=== PATIENT | male | born 1995 | race Hispanic/Latino ===

== ENCOUNTER 2018-05-29 05:48 | Emergency (ER) | payer SELFPAY ==
--- NOTE | 2018-05-29 06:33 | EDPHYS ---
Physician Documentation [facility] Name: Darrian Conklin Jr Age: 23 yrs Sex: Male : 1995 Arrival Date: 05/29/2018 Time: 05:49 Bed 16 Private MD: ED Physician Ezra Garcia HPI: 05/29 06:23 This 23 yrs old Male presents to ER via Ambulatory with complaints of cp Congestion. 06:24 The patient presents with nasal drainage, clear, nasal congestion. Onset: The cp symptoms/episode began/occurred 2 day(s) ago. Associated signs and symptoms: Pertinent negatives: cough, ear ache, fever, sore throat. Severity of symptoms: in the emergency department the symptoms are unchanged. Historical: - Allergies: 06:06 No Known Allergies; fc - Home Meds: 06:06 None [Active]; fc - PMHx: 06:06 None; fc - PSHx: 06:06 None; fc - Immunization history:: Last tetanus immunization: up to date. - Social history:: Smoking status: Patient uses tobacco products, smokes one-half pack cigarettes per day, Patient/guardian denies using alcohol, street drugs. - Ebola Screening: : Patient negative for fever greater than or equal to 101.5 degrees Fahrenheit, and additional compatible Ebola Virus Disease symptoms Patient denies exposure to infectious person Patient denies travel to an Ebola-affected area in the 21 days before illness onset. ROS: 06:26 Eyes: Negative for injury, pain, redness, and discharge. cp 06:26 Constitutional: Negative for body aches, chills, fever, poor PO intake. 06:26 ENT: Positive for rhinorrhea, nasal congestion, Negative for drainage from ear(s), ear pain, sinus pain, sore throat, difficulty swallowing, difficulty handling secretions. 06:26 Neck: Negative for pain with movement, pain at rest, stiffness, swollen nodes. 06:26 Cardiovascular: Negative for chest pain, palpitations. 06:26 Respiratory: Negative for cough, shortness of breath, wheezing. 06:26 Abdomen/GI: Negative for abdominal pain, nausea, vomiting, and diarrhea. 06:26 : Negative for urinary symptoms. 06:26 Skin: Negative for cellulitis, rash. 06:26 Neuro: Negative for altered mental status, headache, weakness. 06:26 All other systems are negative. Exam: 06:28 Head/Face: Normocephalic, atraumatic. cp 06:28 Constitutional: The patient appears in no acute distress, alert, awake, non-toxic, well developed, well nourished. 06:28 Eyes: Periorbital structures: appear normal, Conjunctiva: normal, no exudate, no injection, Lids and lashes: appear normal, bilaterally. 06:28 ENT: External ear(s): are unremarkable, Ear canal(s): are normal, clear, TM's: bulging, is not appreciated, bilaterally, erythema, that is mild, on the left, Nose: External nose: no obvious acute abnormality, Nasal mucosa: congestion, nasal drainage, that is minimal, Mouth: Lips: moist, Oral mucosa: pink and intact, moist, Posterior pharynx: is normal, airway is patent, no erythema, no exudate, Voice: is normal. 06:28 Neck: ROM/movement: is normal, is supple, without pain, no range of motions limitations, no meningismus, no nuchal rigidity, Lymph nodes: no appreciated lymphadenopathy. 06:28 Chest/axilla: Inspection: normal, Palpation: is normal, no crepitus, no tenderness. 06:28 Cardiovascular: Rate: normal, Rhythm: regular. 06:28 Respiratory: the patient does not display signs of respiratory distress, Respirations: normal, no use of accessory muscles, no retractions, no splinting, no tachypnea, labored breathing, is not present, Breath sounds: are clear throughout, no decreased breath sounds, no stridor, no wheezing. 06:28 Abdomen/GI: Exam negative for discomfort, distension, guarding, Inspection: obese 06:28 Skin: cellulitis, is not appreciated, no rash present. Vital Signs: 05:50 BP 121 / 81; Pulse 82; Resp 20; Temp 97.9(O); Pulse Ox 97% on R/A; Weight 142.88 kg fc (R); Height 5 ft. 8 in. (172.72 cm) (R); Pain 0/10; 06:53 BP 124 / 80; Pulse 80; Resp 16; Pulse Ox 100% on R/A; Pain 0/10; ao 05:50 Body Mass Index 47.90 (142.88 kg, 172.72 cm) MDM: 06:11 Patient medically screened. cp 06:25 Differential diagnosis: sinusitis, URI, allergic rhinitis. cp 06:31 Data reviewed: vital signs, nurses notes, and as a result, I will discharge patient. cp 06:31 Counseling: I had a detailed discussion with the patient and/or guardian regarding: the cp historical points, exam findings, and any diagnostic results supporting the discharge/admit diagnosis, to return to the emergency department if symptoms worsen or persist or if there are any questions or concerns that arise at home. Administered Medications: No medications were administered Disposition: 07:05 Co-signature as Attending Physician, Ezra Garcia MD I agree with the assessment and [facility] plan of care. Disposition: 05/29/18 06:32 Discharged to Home. Impression: Nasal congestion. - Condition is Stable. - Prescriptions for Flonase Allergy Relief 50 mcg/actuation Nasal spray,suspension - inhale 1 spray by INTRANASAL route once daily; 1 unit. Zyrtec- D 5-120 mg Oral Tablet Sustained Release 12 hr - take 1 tablet by ORAL route every 12 hours As needed; 20 tablet. - Medication Reconciliation Form, Thank You Letter, Antibiotic Education, Prescription Opioid Use, Work release form form. - Follow up: Private Physician; When: 2 - 3 days; Reason: Recheck today's complaints. - Problem is new. - Symptoms are unchanged. Signatures: Ezra Garcia MD MD cha Chretien, Felicia, RN RN Ezra Limon PA PA cp Ortiz, Alex, RN RN ao Corrections: (The following items were deleted from the chart) 06:25 06:23 The patient presents with nasal drainage, clear, cp cp 06:55 06:32 05/29/2018 06:32 Discharged to Home. Impression: Nasal congestion. Condition is ao Stable. Forms are Medication Reconciliation Form, Thank You Letter, Antibiotic Education, Prescription Opioid Use. Follow up: Private Physician; When: 2 - 3 days; Reason: Recheck today's complaints. Problem is new. Symptoms are unchanged. cp
--- NOTE | 2018-05-29 06:33 | ER ---
Nurse's Notes [facility] Name: Darrian Conklin Jr Age: 23 yrs Sex: Male : 1995 Arrival Date: 05/29/2018 Time: 05:49 Bed 16 Private MD: Diagnosis: Nasal congestion Presentation: 05/29 05:50 Presenting complaint: Patient states: that he has been having sinus congestion with fc clear nasal drainage x 2 days. Denies any fever or cough. Transition of care: patient was not received from another setting of care. Onset of symptoms was May 27, 2018. Risk Assessment: Do you want to hurt yourself or someone else? Patient reports no desire to harm self or others. Initial Sepsis Screen: Does the patient meet any 2 criteria? No. Patient's initial sepsis screen is negative. Does the patient have a suspected source of infection? No. Patient's initial sepsis screen is negative. Care prior to arrival: Medication(s) given: Zrytec yesterday am. 05:50 Method Of Arrival: Ambulatory 05:50 Acuity: KRYSTAL 5 Triage Assessment: 05:50 General: Appears comfortable, obese, Behavior is calm, cooperative, appropriate for age. Pain: Denies pain. EENT: Nares with drainage noted Reports nasal congestion nasal discharge that is watery. Neuro: Level of Consciousness is awake, alert, obeys commands, Oriented to person, place, time, situation. Cardiovascular: No deficits noted. Respiratory: Airway is patent Respiratory effort is even, unlabored, Respiratory pattern is regular, symmetrical, Breath sounds are clear bilaterally. Onset: The symptoms/episode began/occurred gradually, the patient has mild shortness of breath Denies cough, shortness of breath labored breathing. GI: No deficits noted. : No deficits noted. Derm: Skin is pink, warm \T\ dry. Musculoskeletal: Circulation, motion, and sensation intact. Capillary refill < 3 seconds, Range of motion: intact in all extremities. Historical: - Allergies: 06:06 No Known Allergies; fc - Home Meds: 06:06 None [Active]; fc - PMHx: 06:06 None; fc - PSHx: 06:06 None; fc - Immunization history:: Last tetanus immunization: up to date. - Social history:: Smoking status: Patient uses tobacco products, smokes one-half pack cigarettes per day, Patient/guardian denies using alcohol, street drugs. - Ebola Screening: : Patient negative for fever greater than or equal to 101.5 degrees Fahrenheit, and additional compatible Ebola Virus Disease symptoms Patient denies exposure to infectious person Patient denies travel to an Ebola-affected area in the 21 days before illness onset. Screenin:06 Abuse screen: Denies threats or abuse. Nutritional screening: No deficits noted. Tuberculosis screening: No symptoms or risk factors identified. Fall Risk None identified. Assessment: 06:05 General: Appears in no apparent distress. comfortable. Pain: Denies pain. Neuro: Level ao of Consciousness is awake, alert, obeys commands, Oriented to person, place, time, situation, Appropriate for age Moves all extremities. Full function Speech is normal, Facial symmetry appears normal. Cardiovascular: Capillary refill < 3 seconds Patient's skin is warm and dry. Respiratory: Airway is patent Trachea midline Respiratory effort is even, unlabored, Respiratory pattern is regular, symmetrical. Respiratory: Breath sounds are clear bilaterally. GI: Abdomen is obese. : No signs and/or symptoms were reported regarding the genitourinary system. EENT: No signs and/or symptoms were reported regarding the EENT system. Derm: Skin is intact, Skin is pink, warm \T\ dry. normal, Skin temperature is warm. Musculoskeletal: Circulation, motion, and sensation intact. Range of motion:. 06:53 Reassessment: DC instructions given to patient. patient agree with the POC and to ao follow up with PCP. Vital Signs: 05:50 BP 121 / 81; Pulse 82; Resp 20; Temp 97.9(O); Pulse Ox 97% on R/A; Weight 142.88 kg (R); Height 5 ft. 8 in. (172.72 cm) (R); Pain 0/10; 06:53 BP 124 / 80; Pulse 80; Resp 16; Pulse Ox 100% on R/A; Pain 0/10; ao 05:50 Body Mass Index 47.90 (142.88 kg, 172.72 cm) ED Course: 05:49 Patient arrived in ED. ds1 05:50 Arm band placed on Patient placed in an exam room, on a stretcher. 06:05 Triage completed. 06:06 Patient has correct armband on for positive identification. Bed in low position. Call light in reach. Pulse ox on. NIBP on. 06:06 No provider procedures requiring assistance completed. 06:11 Ezra Limon PA is PHCP. cp 06:11 Ezra Garcia MD is Attending Physician. cp 06:26 Say Negron, RN is Primary Nurse. ao 06:53 Patient did not have IV access during this emergency room visit. ao Administered Medications: No medications were administered Outcome: 06:32 Discharge ordered by . cp 06:53 Discharged to home ambulatory. ao 06:53 Condition: stable 06:53 Discharge instructions given to patient, Instructed on discharge instructions, follow up and referral plans. Demonstrated understanding of instructions, follow-up care, medications, Prescriptions given X 2. 06:55 Patient left the ED. ao Signatures: Frieda Mason, RN RN StanfordDashi ds1 Ezra Limon PA PA cp Say Negron, RN RN ao
== END 2018-05-29 06:55 | disposition home or self-care (01) ==
LOC: ER 05:48
DX: R09.81 Nasal congestion (principal); F17.210 Nicotine dependence, cigarettes, uncomplicated
CPT/HCPCS: 99283

== ENCOUNTER 2018-06-17 09:03 | Emergency (ER) | payer SELFPAY ==
--- NOTE | 2018-06-17 09:40 | ER ---
Nurse's Notes [facility] Name: Darrian Conklin Jr Age: 23 yrs Sex: Male : 1995 Arrival Date: 06/17/2018 Time: 09:05 Bed 14 Private MD: Diagnosis: Insect bite (nonvenomous) of left upper arm Presentation: 06/17 09:09 Presenting complaint: Patient states: insect bite to L upper arm, for about 24 hours. Transition of care: patient was not received from another setting of care. Onset of symptoms was June 16, 2018 at 09:00. Risk Assessment: Do you want to hurt yourself or someone else? Patient reports no desire to harm self or others. Initial Sepsis Screen: Does the patient meet any 2 criteria? No. Patient's initial sepsis screen is negative. Does the patient have a suspected source of infection? No. Patient's initial sepsis screen is negative. Care prior to arrival: None. 09:09 Method Of Arrival: Ambulatory 09:09 Acuity: KRYSTAL 5 ch Triage Assessment: 09:10 Bite description: bite sustained to left tricep by an unknown animal, animal information: vaccination(s) is not applicable. General: Appears in no apparent distress. comfortable, Behavior is calm, cooperative, appropriate for age. Pain: Complains of pain in left arm. Historical: - Allergies: 09:10 No Known Allergies; - Home Meds: 09:10 None [Active]; - PMHx: 09:10 None; - PSHx: 09:10 None; - Immunization history:: Adult Immunizations up to date, Last tetanus immunization: up to date Flu vaccine is not up to date. - Social history:: Smoking status: Patient/guardian denies using tobacco, Patient/guardian denies using alcohol, street drugs. - Ebola Screening: : Patient negative for fever greater than or equal to 101.5 degrees Fahrenheit, and additional compatible Ebola Virus Disease symptoms Patient denies exposure to infectious person Patient denies travel to an Ebola-affected area in the 21 days before illness onset No symptoms or risks identified at this time. Screenin:15 Abuse screen: Denies threats or abuse. Denies injuries from another. Nutritional cc3 screening: No deficits noted. Tuberculosis screening: No symptoms or risk factors identified. Fall Risk None identified. Assessment: 09:15 General: Appears in no apparent distress. comfortable, Behavior is calm, cooperative, cc3 appropriate for age. Pain: Complains of pain in left medial upper arm Pain currently is 6 out of 10 on a pain scale. Quality of pain is described as burning, aching. Neuro: Level of Consciousness is awake, alert, obeys commands, Oriented to person, place, time, situation, Appropriate for age. Cardiovascular: Denies chest pain, Capillary refill < 3 seconds is brisk in bilateral. Respiratory: Airway is patent Respiratory effort is even, unlabored, Respiratory pattern is regular, symmetrical. GI: Abdomen is flat, round non-distended. : No signs and/or symptoms were reported regarding the genitourinary system. EENT: No signs and/or symptoms were reported regarding the EENT system. Derm: Skin redness on the left medial upper arm from unknown insect bite. Skin is red, Skin temperature is hot. Musculoskeletal: No signs and/or symptoms reported regarding the musculoskeletal system. Vital Signs: 09:10 BP 132 / 86; Pulse 79; Resp 15; Temp 98.9; Pulse Ox 97% on R/A; Weight 133.81 kg; ch Height 5 ft. 9 in. (175.26 cm); Pain 3/10; 09:10 Body Mass Index 43.56 (133.81 kg, 175.26 cm) ED Course: 09:05 Patient arrived in ED. as 09:10 Triage completed. 09:10 Arm band placed on left wrist. Patient placed in an exam room, on a stretcher. 09:15 Placed in gown. Bed in low position. Call light in reach. Side rails up X 1. cc3 09:16 Ezra Limon PA is PHCP. cp 09:16 Zac Olivo MD is Attending Physician. cp 09:30 No provider procedures requiring assistance completed. cc3 09:45 Patient did not have IV access during this emergency room visit. cc3 Administered Medications: No medications were administered Outcome: 09:39 Discharge ordered by . cp 09:45 Discharged to home ambulatory. cc3 09:45 Condition: stable 09:45 Discharge instructions given to patient, Instructed on discharge instructions, follow up and referral plans. medication usage, Demonstrated understanding of instructions, follow-up care, medications, Prescriptions given X 1. 09:48 Patient left the ED. cc3 Signatures: Christina Alexander, RN Jessica Gunn ch as Ezra Limon PA PA cp Cordel, Charlene cc3
--- NOTE | 2018-06-17 09:40 | EDPHYS ---
Physician Documentation [facility] Name: Darrian Conklin Jr Age: 23 yrs Sex: Male : 1995 Arrival Date: 06/17/2018 Time: 09:05 Bed 14 Private MD: ED Physician Zac Olivo HPI: 06/17 09:32 This 23 yrs old Male presents to ER via Ambulatory with complaints of Insect cp Bite. 09:33 The patient or guardian complains of a bite, by an insect. The complaints affect the cp inner aspect left upper arm. Onset: The symptoms/episode began/occurred yesterday. Treatment prior to arrival includes: no previous treatment. Associated signs and symptoms: Pertinent positives: erythema, swelling, warmth, Pertinent negatives: fever. Severity of symptoms: in the emergency department the symptoms are unchanged. Historical: - Allergies: 09:10 No Known Allergies; ch - Home Meds: 09:10 None [Active]; ch - PMHx: 09:10 None; ch - PSHx: 09:10 None; ch - Immunization history:: Adult Immunizations up to date, Last tetanus immunization: up to date Flu vaccine is not up to date. - Social history:: Smoking status: Patient/guardian denies using tobacco, Patient/guardian denies using alcohol, street drugs. - Ebola Screening: : Patient negative for fever greater than or equal to 101.5 degrees Fahrenheit, and additional compatible Ebola Virus Disease symptoms Patient denies exposure to infectious person Patient denies travel to an Ebola-affected area in the 21 days before illness onset No symptoms or risks identified at this time. ROS: 09:34 Eyes: Negative for injury, pain, redness, and discharge. cp 09:34 Constitutional: Negative for body aches, chills, fever, poor PO intake. 09:34 ENT: Negative for drainage from ear(s), ear pain, sore throat, difficulty swallowing, difficulty handling secretions. 09:34 Cardiovascular: Negative for chest pain. 09:34 Respiratory: Negative for cough, shortness of breath, wheezing. 09:34 Abdomen/GI: Negative for abdominal pain, nausea, vomiting, and diarrhea. 09:34 Skin: Positive for of the inner aspect left upper arm, insect bite. 09:34 All other systems are negative. Exam: 09:35 Head/Face: Normocephalic, atraumatic. cp 09:35 Constitutional: The patient appears in no acute distress, alert, awake, non-toxic, well developed, well nourished. 09:35 Eyes: Periorbital structures: appear normal, Conjunctiva: normal, no exudate, no injection, Sclera: no appreciated abnormality, Lids and lashes: appear normal, bilaterally. 09:35 ENT: External ear(s): are unremarkable, Nose: is normal, Mouth: is normal, Posterior pharynx: is normal, airway is patent, no erythema, no exudate. 09:35 Chest/axilla: Inspection: normal. 09:35 Cardiovascular: Rate: normal. 09:35 Respiratory: the patient does not display signs of respiratory distress, Respirations: normal, no use of accessory muscles, no retractions, no splinting, no tachypnea. 09:35 Skin: injury, bite(s), superficial, of the inner aspect left upper arm, that can be described as mild erythema, mild swelling, no induration, non-tender. Vital Signs: 09:10 BP 132 / 86; Pulse 79; Resp 15; Temp 98.9; Pulse Ox 97% on R/A; Weight 133.81 kg; ch Height 5 ft. 9 in. (175.26 cm); Pain 3/10; 09:10 Body Mass Index 43.56 (133.81 kg, 175.26 cm) ch MDM: 09:16 Patient medically screened. cp 09:35 Differential diagnosis: abscess, cellulitis, insect bite. cp 09:38 Data reviewed: vital signs, nurses notes, and as a result, I will discharge patient. cp 09:38 Counseling: I had a detailed discussion with the patient and/or guardian regarding: the cp historical points, exam findings, and any diagnostic results supporting the discharge/admit diagnosis, to return to the emergency department if symptoms worsen or persist or if there are any questions or concerns that arise at home. Administered Medications: No medications were administered Disposition: 10:33 Co-signature as Attending Physician, Zac Olivo MD I agree with the assessment and kdr plan of care. Disposition: 06/17/18 09:39 Discharged to Home. Impression: Insect bite (nonvenomous) of left upper arm. - Condition is Stable. - Discharge Instructions: Insect Bite. - Prescriptions for Triamcinolone Acetonide 0.5 % Topical Cream - apply 1 application by TOPICAL route 2 times per day As needed apply to insect bite as directed as needed; 1 tube. - Medication Reconciliation Form, Thank You Letter, Antibiotic Education, Prescription Opioid Use form. - Work release form (06/17/18 10:09). bd - Follow up: Private Physician; When: 1 - 2 days; Reason: Wound Recheck. - Problem is new. - Symptoms are unchanged. Signatures: Christina Alexander RN RN Zac Olivo MD MD [facility] Ezra Limon PA PA cp Xi Sharma cc3 Chrissy Bird bd Corrections: (The following items were deleted from the chart) 09:48 09:39 06/17/2018 09:39 Discharged to Home. Impression: Insect bite (nonvenomous) of cc3 left upper arm. Condition is Stable. Forms are Medication Reconciliation Form, Thank You Letter, Antibiotic Education, Prescription Opioid Use. Follow up: Private Physician; When: 1 - 2 days; Reason: Wound Recheck. Problem is new. Symptoms are unchanged. cp 06/18 06:30 06/17 09:20 Differential diagnosis: insect bite, abscess, cellulitis cp cp
== END 2018-06-17 09:48 | disposition home or self-care (01) ==
LOC: ER 09:03
DX: S40.862A Insect bite (nonvenomous) of left upper arm, initial encounter (principal)
CPT/HCPCS: 99282

== ENCOUNTER 2018-10-30 00:30 | Emergency (ER) | payer SELFPAY ==
[2018-10-30] MEDS ORDERED: ACETAMINOPHEN 325 MG TABLET ONE (01:54)
[2018-10-30] MEDS ORDERED: ONDANSETRON 4 MG (ODT) TAB ONE (01:54)
--- NOTE | 2018-10-30 02:44 | ER ---
Nurse's Notes [facility] Name: Darrian Conklin Jr Age: 23 yrs Sex: Male : 1995 Arrival Date: 10/30/2018 Time: 00:32 Bed 27 Private MD: Diagnosis: Vomiting;Diarrhea, unspecified Presentation: 10/30 00:48 Presenting complaint: Patient states: fever and nasal congestion started at 2100. pt ak1 stated he took OTC pill from [place] with no relief. Transition of care: patient was not received from another setting of care. Onset of symptoms was October 29, 2018. Risk Assessment: Do you want to hurt yourself or someone else? Patient reports no desire to harm self or others. Care prior to arrival: None. 00:48 Method Of Arrival: Ambulatory ak1 00:48 Acuity: KRYSTAL 4 ak1 01:23 Initial Sepsis Screen: Does the patient meet any 2 criteria? No. Patient's initial mg2 sepsis screen is negative. Does the patient have a suspected source of infection? No. Patient's initial sepsis screen is negative. Triage Assessment: 00:49 General: Appears in no apparent distress. Behavior is calm, cooperative, appropriate ak1 for age. Pain: Denies pain. EENT: Reports nasal congestion. Neuro: No deficits noted. Cardiovascular: No deficits noted. Respiratory: No deficits noted. GI: No signs and/or symptoms were reported involving the gastrointestinal system. : No signs and/or symptoms were reported regarding the genitourinary system. Derm: Parent/caregiver reports the patient having fever. Musculoskeletal: No signs and/or symptoms reported regarding the musculoskeletal system. Historical: - Allergies: 00:49 No Known Allergies; ak1 - Home Meds: 00:49 None [Active]; ak1 - PMHx: 00:49 None; ak1 - PSHx: 00:49 None; ak1 - Immunization history:: Adult Immunizations unknown, Flu vaccine is not up to date. - Social history:: Smoking status: Patient uses tobacco products, smokes one-half pack cigarettes per day. - Ebola Screening: : No symptoms or risks identified at this time. Screenin:50 Abuse screen: Denies threats or abuse. Denies injuries from another. Nutritional ak1 screening: No deficits noted. Tuberculosis screening: No symptoms or risk factors identified. Fall Risk None identified. Assessment: 00:51 Reassessment: Patient appears in no apparent distress at this time. No changes from ak1 previously documented assessment. see triage assessment. 01:22 General: Appears in no apparent distress. comfortable, Behavior is calm, cooperative. mg2 Pain: Denies pain. Neuro: Level of Consciousness is awake, alert, obeys commands, Oriented to person, place, time, situation. Cardiovascular: Capillary refill < 3 seconds Patient's skin is warm and dry. Respiratory: Reports cough that is runny nose Airway is patent Respiratory effort is even, unlabored, Respiratory pattern is regular, symmetrical, Breath sounds are clear bilaterally. in left posterior upper lobe, right posterior upper lobe, left posterior lower lobe, right posterior middle lobe and right posterior lower lobe. GI: Reports vomiting. : No signs and/or symptoms were reported regarding the genitourinary system. EENT: No signs and/or symptoms were reported regarding the EENT system. Derm: Skin is intact, is healthy with good turgor, Skin is pink, warm \T\ dry. normal. Musculoskeletal: No signs and/or symptoms reported regarding the musculoskeletal system. 01:47 Reassessment: patient refused for iv medications and blood tests. provider informed. mg2 03:05 Reassessment: patient improved. temperature decreased. mg2 Vital Signs: 00:47 BP 152 / 94; Pulse 110; Resp 20; Temp 99.8(O); Pulse Ox 98% on R/A; Weight 127.01 kg ak1 (R); Height 5 ft. 7 in. (170.18 cm) (R); Pain 0/10; 02:35 BP 100 / 52; Pulse 110; Resp 18; Temp 102.5(O); Pulse Ox 98% on R/A; Pain 0/10; mg2 03:06 BP 110 / 75; Pulse 92; Resp 18; Temp 101(O); Pulse Ox 100% on R/A; Pain 0/10; mg2 00:47 Body Mass Index 43.85 (127.01 kg, 170.18 cm) ak1 ED Course: 00:32 Patient arrived in ED. am2 00:47 Arm band placed on Patient placed in an exam room, on a stretcher, Patient notified of ak1 wait time. 00:49 Triage completed. ak1 00:51 Neymar Cast PA is PHCP. [facility] 00:51 Samy Nicole MD is Attending Physician. [facility] 00:51 Patient has correct armband on for positive identification. Bed in low position. Call ak1 light in reach. Side rails up X 1. Pulse ox on. NIBP on. 00:52 Curtis Leigh, RN is Primary Nurse. mg2 00:52 Flu and/or RSV swab sent to lab. ak1 01:23 No provider procedures requiring assistance completed. Patient did not have IV access mg2 during this emergency room visit. Administered Medications: 01:46 Drug: Tylenol 650 mg Route: PO; mg2 02:36 Follow up: Response: No adverse reaction; Temperature is increased mg2 01:47 Not Given (Patient Refused): NS 0.9% 1000 ml IV at 1 bolus Per protocol; 1000 mL bolus mg2 01:47 Not Given (Patient Refused): Zofran 4 mg IVP once; over 2 minutes mg2 01:47 Drug: Zofran 4 mg Route: PO; mg2 02:35 Follow up: Response: No adverse reaction; Marked relief of symptoms mg2 02:45 Drug: Motrin 600 mg Route: PO; mg2 03:04 Follow up: Response: No adverse reaction; Temperature is decreased mg2 Outcome: 02:43 Discharge ordered by MD. [facility] 03:05 Discharged to home ambulatory, with family. mg2 03:05 Condition: stable 03:05 Discharge instructions given to patient, family, Instructed on discharge instructions, follow up and referral plans. medication usage, Demonstrated understanding of instructions, follow-up care, medications, Prescriptions given X 1. 03:06 Patient left the ED. mg2 Signatures: Neymar Cast PA PA [facility] Cyndi Barth RN RN ak1 Angelika Fletcher am2 Curtis Leigh, RN RN mg2 Corrections: (The following items were deleted from the chart) 02:52 02:35 BP 100 / 52; Pulse 98bpm; Resp 18bpm; Pulse Ox 98% RA; Temp 102.5F Oral; Pain mg2 0/10; mg2
--- NOTE | 2018-10-30 02:44 | EDPHYS ---
Physician Documentation [facility] Name: Darrian Conklin Jr Age: 23 yrs Sex: Male : 1995 Arrival Date: 10/30/2018 Time: 00:32 Bed 27 Private MD: ED Physician Samy Nicole HPI: 10/30 01:38 This 23 yrs old Male presents to ER via Ambulatory with complaints of Fever, jmm Cold Symptoms. 01:38 The patient presents to the emergency department with nausea, vomiting, diarrhea. jmm Onset: The symptoms/episode began/occurred today. Possible causes: unknown. Associated signs and symptoms: Pertinent positives: fever, Pertinent negatives: abdominal pain. This is a 23 year old male with no chronic medical conditions that presents to the ED with 1 episode of vomiting and multiple episodes watery diarrhea today. patient denies recent travel, recent antibiotics use. . Historical: - Allergies: 00:49 No Known Allergies; ak1 - Home Meds: 00:49 None [Active]; ak1 - PMHx: 00:49 None; ak1 - PSHx: 00:49 None; ak1 - Immunization history:: Adult Immunizations unknown, Flu vaccine is not up to date. - Social history:: Smoking status: Patient uses tobacco products, smokes one-half pack cigarettes per day. - Ebola Screening: : No symptoms or risks identified at this time. ROS: 01:38 Constitutional: Positive for fever. jmm 01:38 Abdomen/GI: Positive for nausea and vomiting, diarrhea, Negative for abdominal pain. 01:38 All other systems are negative. Exam: 01:38 Constitutional: This is a well developed, well nourished patient who is awake, alert, jmm and in no acute distress. Head/Face: atraumatic. Eyes: EOMI, no conjunctival erythema appreciated ENT: Moist Mucus Membranes Neck: Trachea midline, Supple Chest/axilla: Normal chest wall appearance and motion. Cardiovascular: Regular rate and rhythm. No edema appreciated Respiratory: Normal respirations, no respiratory distress appreciated 01:38 Back: Normal ROM Skin: General appearance color normal MS/ Extremity: Moves all extremities, no obvious deformities appreciated, no edema noted to the lower extremities Neuro: Awake and alert, normal gait Psych: Behavior is normal, Mood is normal, Patient is cooperative and pleasant 01:38 Abdomen/GI: Inspection: abdomen appears normal, Bowel sounds: normal, Palpation: abdomen is soft and non-tender, in all quadrants. Vital Signs: 00:47 BP 152 / 94; Pulse 110; Resp 20; Temp 99.8(O); Pulse Ox 98% on R/A; Weight 127.01 kg ak1 (R); Height 5 ft. 7 in. (170.18 cm) (R); Pain 0/10; 02:35 BP 100 / 52; Pulse 110; Resp 18; Temp 102.5(O); Pulse Ox 98% on R/A; Pain 0/10; mg2 03:06 BP 110 / 75; Pulse 92; Resp 18; Temp 101(O); Pulse Ox 100% on R/A; Pain 0/10; mg2 00:47 Body Mass Index 43.85 (127.01 kg, 170.18 cm) ak1 MDM: 01:27 Patient medically screened. [facility] 02:31 Data reviewed: vital signs, nurses notes, lab test result(s). Refusal of service: The [facility] patient/guardian displays adequate decision making capability and despite a detailed discussion of alternatives, benefits, risks, and consequences refuses: blood draw. 02:42 Counseling: I had a detailed discussion with the patient and/or guardian regarding: the [facility] historical points, exam findings, and any diagnostic results supporting the discharge/admit diagnosis, lab results, the need for outpatient follow up, to return to the emergency department if symptoms worsen or persist or if there are any questions or concerns that arise at home. ED course: Patient's abdomen is soft, i do not currently suspect an acute intraabdominal process. Patient given strict return precautions. patient undestood and agrees with the plan of care. . 10/30 00:42 Order name: Flu; Complete Time: 01:27 bb 10/30 02:12 Order name: PO challenge; Complete Time: 02:35 [facility] Administered Medications: 01:46 Drug: Tylenol 650 mg Route: PO; mg2 02:36 Follow up: Response: No adverse reaction; Temperature is increased mg2 01:47 Not Given (Patient Refused): NS 0.9% 1000 ml IV at 1 bolus Per protocol; 1000 mL bolus mg2 01:47 Not Given (Patient Refused): Zofran 4 mg IVP once; over 2 minutes mg2 01:47 Drug: Zofran 4 mg Route: PO; mg2 02:35 Follow up: Response: No adverse reaction; Marked relief of symptoms mg2 02:45 Drug: Motrin 600 mg Route: PO; mg2 03:04 Follow up: Response: No adverse reaction; Temperature is decreased mg2 Disposition: 04:30 Co-signature as Attending Physician, Samy Nicole MD. corey Disposition: 10/30/18 02:43 Discharged to Home. Impression: Vomiting, Diarrhea, unspecified. - Condition is Stable. - Discharge Instructions: Food Choices to Help Relieve Diarrhea, Adult, Nausea and Vomiting, Adult. - Prescriptions for Zofran ODT 4 mg Oral tablet,disintegrating - place 1 tablet by TRANSLINGUAL route every 6 hours; 20 tablet. - Medication Reconciliation Form, Thank You Letter, Antibiotic Education, Prescription Opioid Use form. - Follow up: Private Physician; When: 2 - 3 days; Reason: Recheck today's complaints, Continuance of care, Re-evaluation by your physician. Signatures: Dispatcher [employer] EDSamy Hart MD MD pkl Neymar Cast PA PA jmm Krenek, Amber RN RN ak1 Curtis Leigh RN RN mg2 Corrections: (The following items were deleted from the chart) 03:06 02:43 10/30/2018 02:43 Discharged to Home. Impression: Vomiting; Diarrhea, unspecified. mg2 Condition is Stable. Forms are Medication Reconciliation Form, Thank You Letter, Antibiotic Education, Prescription Opioid Use. Follow up: Private Physician; When: 2 - 3 days; Reason: Recheck today's complaints, Continuance of care, Re-evaluation by your physician. hay
[2018-10-30] MEDS ORDERED: IBUPROFEN 400 MG TAB ONE (02:52)
[2018-10-30] MEDS ORDERED: IBUPROFEN 200 MG TAB PO ONE (02:52)
== END 2018-10-30 03:06 | disposition home or self-care (01) ==
LOC: ER 00:30
DX: R11.10 Vomiting, unspecified (principal); R19.7 Diarrhea, unspecified
CPT/HCPCS: 87804; 99284